=== PATIENT | male | born 1945 | race Caucasian/White ===

== ENCOUNTER 2024-05-25 09:15 | Emergency (ER) | payer OTHER ==
[~2024-05-25] VITALS: Ht 167.6 cm; Wt 59.9 kg
[2024-05-25 09:58] LABS: BASOPHILS 0.6 % (0-2); EOSINOPHILS 0.5 % (0-6); HEMATOCRIT 36.9 % (35.0-50.0); HEMOGLOBIN 12.3 g/dL (12.0-18.0); LYMPHOCYTES 8.8 % (24-44); MCH 30.8 (27-36); MCHC 33.5 g/dl (30-36); MONOCYTES 6.9 % (0-12); NEUTROPHILS 83.2 % (39-80); PLATELET COUNT 202 K/uL (140-440); RBC 4.01 M/ul (4.3-5.7)
[2024-05-25 10:15] LABS: ALBUMIN 3.3 g/dL (3.4-5.0); ALCOHOL, MEDICAL <3 ng/dL (<3); ALKALINE PHOSPHATASE 73 U/L (46-116); ALT (SGPT) 21 U/L (14-59); ANION GAP 15.7 (7-21); AST (SGOT) 19 U/L (15-37); BILIRUBIN, TOTAL 0.4 mg/dL (0.2-1.0); BUN/CREATININE RATIO 24.79 (6.0-28.6); CALCIUM 8.8 mg/dL (8.5-10.1); CARBON DIOXIDE 23 mmol/L (21-32); CHLORIDE 113 mmol/L (98-107); CREATININE, SERUM 1.21 mg/dL (0.70-1.30); GLOMERULAR FILTRATION RATE,EST 61 mL/min (>60); POTASSIUM 3.7 mmol/L (3.5-5.1); PROTEIN, TOTAL 6.6 g/dL (6.4-8.2); TSH, 3RD GENERATION 12.881 uIU/mL (0.358-3.740); UREA NITROGEN 30 mg/dL (7-18)
[2024-05-25] MEDS ORDERED: SODIUM CHLORIDE 0.9% 1,000 ML IV ONE (11:00)
[2024-05-25] MEDS ORDERED: HALOPERIDOL LACTATE 5 MG/ML VIAL IM ONE (11:30)
[2024-05-25] MEDS ORDERED: LORazepam 2 MG/ML VIAL IV ONE ×2 (11:45→12:00)
[2024-05-25] MEDS ORDERED: diphenhydrAMINE HCL 50 MG/ML VIAL IV ONE (12:00)
[2024-05-25 18:52] LABS: BILIRUBIN, URINE NEGATIVE (negative); BLOOD/HGB, URINE NEGATIVE (Negative); KETONE, URINE NEGATIVE (Negative); LEUK ESTERASE, URINE TRACE (negative); NITRITE, URINE NEGATIVE (negative); PH, URINE 5.5 (5-7)
[2024-05-25 19:06] LABS: AMPHETAMINES, URINE NEGATIVE (NEGATIVE); BACTERIA, URINE RARE /hpf (negative); BARBITURATES, URINE NEGATIVE (NEGATIVE); BENZODIAZEPINE, URINE NEGATIVE (NEGATIVE); BUPRENORPHINE, URINE NEGATIVE (NEGATIVE); CANNABINOID, URINE NEGATIVE (NEGATIVE); CASTS, URINE NONE SEEN \\lpf; COCAINE, URINE NEGATIVE (NEGATIVE); COLLECTION TYPE, URINE CLEAN CATCH; CRYSTALS, URINE CALCIUM OXALATE 2+ (0-1+); ECSTASY, URINE NEGATIVE (NEGATIVE); EPITHELIAL CELLS, URINE NONE SEEN /lpf (0-1+); FENTANYL, URINE NEGATIVE (NEGATIVE); METHADONE, URINE NEGATIVE (NEGATIVE); OPIATES, URINE NEGATIVE (NEGATIVE); OXYCODONE, URINE NEGATIVE (NEGATIVE); PHENCYCLIDINE, URINE NEGATIVE (NEGATIVE); REFLEX CULTURE, URINE No (No)
[2024-05-25] MEDS ORDERED: KETOROLAC TROMETHAMINE 30 MG/ML VIAL IV ONE (20:00)
[2024-05-25] MEDS ORDERED: OLANZapine 10 MG TABDIS PO SCH (21:00)
[2024-05-26] MEDS ORDERED: SYNTHROID50 MCG PO (01:47)
[2024-05-26] MEDS ORDERED: LEVOTHYROXINE SODIUM 50 MCG TAB PO SCH (07:00)
[2024-05-26] MEDS ORDERED: SEROQUEL25 MG PO (08:44)
[2024-05-26] MEDS ORDERED: QUETIAPINE FUMARATE 25 MG TAB PO ONE (08:45)
[2024-05-26 16:00] VITALS: BP 120/78
== END 2024-05-26 16:00 | disposition home or self-care (01) ==
LOC: ED 09:15
PROVIDERS: Emergency Medicine
DX: R41.0 Disorientation, unspecified (principal); E03.9 Hypothyroidism, unspecified; Z04.1 Encounter for examination and observation following transport accident; V89.2XXA Person injured in unspecified motor-vehicle accident, traffic, initial encounter
CPT/HCPCS: 36415; 70450; 71045; 80053; 80307; 81001; 84439; 84443; 85025; 96361; 96374; 96375; 96376; 99284-25; A9270; G0480; J1200; J1630; J1885; J2060; J7030